=== PATIENT | female | born 1990 | race Caucasian/White ===

== ENCOUNTER 2017-01-24 16:05 | Emergency (ER) | payer MEDICAID ==
--- NOTE | 2017-01-24 16:18 | ER Document Report ---
ED Medical Screen (RME) - General Chief Complaint: Abdominal Cramping Stated Complaint: ABDOMINAL PAIN Time Seen by Provider: 01/24/17 16:14 Notes: Patient says she is having lower pelvic cramping that started this morning and has been going on all day today. She believes she is for the sixth time, LMP 5/15, due to start her current cycle now. No abdominal surgeries. On no medications. Denies any other symptoms. No vaginal bleeding or spotting. No UTI symptoms. No fever. I have advised the patient that I will obtain a test to confirm before ordering an ultrasound because of her actually not having missed a period yet and the possibility that the hormone level will be so low that nothing will be visible on a normal or abnormal ultrasound. TRAVEL OUTSIDE OF THE [place] IN LAST 30 DAYS: No - Related Data Allergies/Adverse Reactions: Sulfa (Sulfonamide Antibiotics) Allergy (Unknown, Verified 01/24/17 16:07) Past Medical History Renal/ Medical History: Denies: Hx Peritoneal Dialysis GI Medical History: Reports: Hx Ulcer - stomach Physical Exam - Vital signs Vitals: Temp Pulse Resp BP Pulse Ox 97.8 F 78 15 122/57 L 98 01/24/17 16:07 01/24/17 16:07 01/24/17 16:07 01/24/17 16:07 01/24/17 16:07 Course - Vital Signs Vital signs: Temp Pulse Resp BP Pulse Ox 97.8 F 78 15 122/57 L 98 01/24/17 16:07 01/24/17 16:07 01/24/17 16:07 01/24/17 16:07 01/24/17 16:07 - Laboratory Laboratory results interpreted by me: 01/24/17 16:22 Beta HCG, Quant 99.50 H
--- NOTE | 2017-01-24 18:12 | ER Document Report ---
ED General - General Chief Complaint: Abdominal Cramping Stated Complaint: ABDOMINAL PAIN Time Seen by Provider: 01/24/17 16:14 Mode of Arrival: Ambulatory Information source: Patient Notes: This 26-year-old female 5 para 2 who presents to the emergency room with pelvic cramping. Patient denies vaginal bleeding. Patient thinks she may be normal menstrual period was 25th TRAVEL OUTSIDE OF THE [place] IN LAST 30 DAYS: No - HPI Onset: Yesterday Onset/Duration: Gradual Quality of pain: No pain Severity: None Pain Level: Denies Associated symptoms: denies: Chest pain, Fever, Shortness of breath Exacerbated by: Denies Relieved by: Denies Similar symptoms previously: No Recently seen / treated by doctor: No - Related Data Allergies/Adverse Reactions: Sulfa (Sulfonamide Antibiotics) Allergy (Unknown, Verified 01/24/17 16:07) Past Medical History - General Information source: Patient - Social History Smoking Status: Current Every Day Smoker Cigarette use (# per day): Yes - Half pack a day Chew tobacco use (# tins/day): No Frequency of alcohol use: Occasional Drug Abuse: None Lives with: Family Family History: Reviewed & Not Pertinent Patient has suicidal ideation: No Patient has homicidal ideation: No - Medical History Medical History: Negative Renal/ Medical History: Denies: Hx Peritoneal Dialysis GI Medical History: Reports: Hx Ulcer - stomach Surgical Hx: Negative Review of Systems - Review of Systems Constitutional: No symptoms reported EENT: No symptoms reported Cardiovascular: No symptoms reported Respiratory: No symptoms reported Gastrointestinal: No symptoms reported Genitourinary: No symptoms reported Female Genitourinary: See HPI Musculoskeletal: No symptoms reported Skin: No symptoms reported Hematologic/Lymphatic: No symptoms reported Neurological/Psychological: No symptoms reported Physical Exam - Vital signs Vitals: Temp Pulse Resp BP Pulse Ox 97.8 F 78 15 122/57 L 98 01/24/17 16:07 01/24/17 16:07 01/24/17 16:07 01/24/17 16:07 01/24/17 16:07 Notes: Physical exam: GENERAL: 26-year-old female, alert and oriented 3, no acute distress HEAD: Atraumatic, normocephalic. EYES: Pupils equal round and reactive to light, extraocular movements intact, sclera anicteric, conjunctiva are normal. ENT: Moist mucous membranes. NECK: Normal range of motion, supple LUNGS: Breath sounds clear to auscultation bilaterally and equal. No wheezes rales or rhonchi. HEART: Regular rate and rhythm without murmurs, rubs or gallops. ABDOMEN: Soft, normoactive bowel sounds. No tenderness to palpation. No guarding, no rebound. No masses appreciated. EXTREMITIES: Normal range of motion, no pitting or edema. No clubbing or cyanosis. NEUROLOGICAL: Cranial nerves II through XII grossly intact. SKIN: Warm, Dry, normal turgor, no rashes or lesions noted. Bedside ultrasound: No IUP identified Course - Re-evaluation Re-evalutation: 01/24/17 18:17 Note: The patient looks quite good on exam. Her abdomen is soft and nontender. I was not able to see any evidence of an IUP on bedside ultrasound ( transabdominal). I explained to her that at the beta quant level that she is at , ultrasound may not [employer] evidence of an IUP until the level was approximately 2000. I have advised her to follow-up at the women's health clinic (she is new to the area, she just moved here from [facility]). In the meantime, I have informed her that if she develops pain or bleeding or worsening cramping, to return to the emergency room. - Vital Signs Vital signs: Temp Pulse Resp BP Pulse Ox 97.8 F 78 15 122/57 L 98 01/24/17 16:07 01/24/17 16:07 01/24/17 16:07 01/24/17 16:07 01/24/17 16:07 - Laboratory Laboratory results interpreted by me: 01/24/17 16:22 Beta HCG, Quant 99.50 H Discharge - Discharge Clinical Impression: Early Condition: Stable Disposition: HOME, SELF-CARE Additional Instructions: test was positive (the betaquant was 99). It is still very early. I did not see any evidence of until the level reaches approximately 2000. It may take 1-2 weeks before it reaches this level Drink plenty of fluids The emergency room for worsening cramping, pain or any vaginal bleeding or any concerns which are getting worse At the [facility]: I left the number on the chart. Referrals: BRYNN KHAN MD [ACTIVE STAFF] - Follow up in 1 week ([facility] clinic for the next available appointment. They will be able to see labs drawn here today)
[2017-01-24 18:22] VITALS: BP 108/65
== END 2017-01-24 18:22 | disposition home or self-care (01) ==
LOC: ER 16:05
DX: Z32.01 Encounter for pregnancy test, result positive (principal); R10.9 Unspecified abdominal pain; R10.2 Pelvic and perineal pain; F17.210 Nicotine dependence, cigarettes, uncomplicated
CPT/HCPCS: 36415; 84702; 99284